=== PATIENT | female | born 1985 | race Caucasian/White ===

== ENCOUNTER 2016-08-08 19:55 | Emergency (ER) | payer MEDICAID ==
[~2016-08-08] VITALS: Ht 162.6 cm; Wt 50.8 kg
[~2016-08-08 19:55] MED LIST: [UNRECOGNIZED DRUG - CODE] PO
[2016-08-08 20:13] VITALS: BP 108/64
--- NOTE | 2016-08-08 20:27 | NUR ---
30Y F BIB SELF C/O RIGHT SIDED FLANK AND BACK PAIN X 10 DAYS. PT STATE SHE WAS SEEN AT HER PCP 5 DAYS AGO AND DID A URINE TEST AND WAS NEGATIVE FOR KIDNEY STONE. PT DENIES ANY MEDICAL HX OR ALLERGIES. PT DENIES ANY N/V/D OR SOB.
--- NOTE | 2016-08-08 20:27 | NUR ---
Patient to bed 08.
[2016-08-08] MEDS ORDERED: KETOROLAC 30 MG/ML VIAL IM ONE (20:35)
--- NOTE | 2016-08-08 21:15 | NUR ---
Patient to CT via wheelchair per tech.
--- NOTE | 2016-08-08 21:22 | NUR ---
Patient back from CT via wheelchair per tech.
[2016-08-08 22:35] VITALS: BP 117/71
--- NOTE | 2016-08-08 22:35 | NUR ---
Patient discharged with v/s stable. Written and verbal after care instructions given and explained. Patient alert, oriented and verbalized understanding of instructions. Ambulatory with steady gait. All questions addressed prior to discharge. ID band removed. Patient advised to follow up with PMD. Rx of NORCO 5/325MG given. Patient educated on indication of medication including possible reaction and side effects. Opportunity to ask questions provided and answered.
== END 2016-08-08 22:35 | disposition home or self-care (01) ==
LOC: MED 19:55
DX: M54.9 Dorsalgia, unspecified (principal)
CPT/HCPCS: 74176; 81002; 81025; 96372; 99284; J1885

== ENCOUNTER 2016-09-27 17:12 | Emergency (ER) | payer MEDICAID ==
[~2016-09-27] VITALS: Ht 162.6 cm; Wt 49.9 kg
[2016-09-27 17:21] VITALS: BP 113/66
--- NOTE | 2016-09-27 19:29 | NUR ---
PATIENT AMBULATED TO BED 6 AT THIS TIME.
[2016-09-27 19:50] VITALS: BP 101/70
--- NOTE | 2016-09-27 19:50 | NUR ---
Patient discharged with v/s stable. Written and verbal after care instructions given and explained. Patient alert, oriented and verbalized understanding of instructions. Ambulatory with steady gait. All questions addressed prior to discharge. ID band removed. Patient advised to follow up with PMD. Rx of colace, motrin, anusol rectal cream, miralax powder given. Patient educated on indication of medication including possible reaction and side effects. Opportunity to ask questions provided and answered.
== END 2016-09-27 19:50 | disposition home or self-care (01) ==
LOC: MED 17:12
CPT/HCPCS: 99283

== ENCOUNTER 2017-01-16 17:47 | Emergency (ER) | payer MEDICAID, OTHER ==
[~2017-01-16] VITALS: Ht 162.6 cm; Wt 49.0 kg
[2017-01-16 18:02] VITALS: BP 108/61
--- NOTE | 2017-01-16 19:49 | NUR ---
PT TAKEN TO BED 7
--- NOTE | 2017-01-16 19:58 | NUR ---
Dr. Cheng evaluating patient at bedside.
--- NOTE | 2017-01-16 20:00 | NUR ---
31/F C/O 01/09 SHARP SEVERE PAIN TO LOWER ABDOMEN X 1 HOUR. PT STATES HX OF OVARIAN CYSTS AND WAS REMOVED FEW MONTHS AGO. DENIES DYSURIA, VAGINAL BLEEDING OR DISCHARGE. PT DENIES ANY OTHER PMH AND RX AT HOME. DENIES N/V/D; SKIN IS PINK/WARM/DRY; AAOX4 WITH EVEN AND STEADY GAIT; LUNGS CLEAR BL; HR EVEN AND REGULAR; PT DENIES ANY FEVER, CP, SOB, OR COUGH AT THIS TIME; VSS; PATIENT POSITIONED FOR COMFORT; HOB ELEVATED; BEDRAILS UP X2; BED DOWN. ER MD MADE AWARE OF PT STATUS.
[2017-01-16] MEDS ORDERED: NACL 0.9% 1,000 ML IV ONE (20:12)
[2017-01-16] MEDS ORDERED: ONDANSETRON 4 MG/2 ML VIAL IVP ONE (20:15)
[2017-01-16] MEDS ORDERED: KETOROLAC 30 MG/ML VIAL IVP ONE (20:15)
[2017-01-16] MEDS ORDERED: DICYCLOMINE 20 MG/2 ML VIAL IM ONE (20:15)
[2017-01-16 20:31] LABS: BASOPHILS # (AUTO) 0.6 K/uL (0.00-0.22); EOSINOPHILS # (AUTO) 0.2 K/uL (0-0.4); HEMATOCRIT 43.3 % (36-48); HEMOGLOBIN 14.1 g/dL (12.0-16.0); LYMPHOCYTES # (AUTO) 2.8 K/uL (2.5-16.5); MEAN CORPUSCULAR HEMOGLOBIN 30 pg (27-31); MEAN CORPUSCULAR HGB CONC 33 g/dL (33-37); MEAN CORPUSCULAR VOLUME 92 fL (80-94); NEUTROPHILS # (AUTO) 5.2 K/uL (1.8-7.7); PLATELET COUNT (AUTO) 236 K/uL (140-450); RED CELL DISTRIBUTION WIDTH 12.9 % (11.6-13.7); WHITE BLOOD COUNT (AUTO) 9.8 K/uL (4.8-10.8)
[2017-01-16 20:34] LABS: APPEARANCE,URINE CLEAR (CLEAR); BILIRUBIN,URINE NEGATIVE (NEGATIVE); BLOOD, URINE NEGATIVE (NEGATIVE); COLOR,URINE YELLOW (YELLOW); LEUKOCYTE ESTERASE ,URINE NEGATIVE (NEGATIVE); NITRITE, URINE NEGATIVE (NEGATIVE); PH,URINE 7.5 (5.0-9.0); UGLUCOSE NEGATIVE (NEGATIVE)
[2017-01-16 20:46] LABS: ANION GAP 9.8 (8-16); CARBON DIOXIDE 27.7 mmol/L (21-32); CREATININE 0.7 mg/dL (0.6-1.3); POTASSIUM 4.5 mmol/L (3.5-5.1)
[2017-01-16 20:52] LABS: ALBUMIN 4.7 g/dL (3.4-5.0); TOTAL BILIRUBIN 0.3 mg/dL (0.0-1.0)
[2017-01-16] MEDS ORDERED: HYDROcodone/APAP 5/325 MG 1 TAB TAB PO ONE (21:45)
[2017-01-16 22:05] VITALS: BP 110/65
--- NOTE | 2017-01-16 22:05 | NUR ---
Patient discharged with v/s stable. Written and verbal after care instructions given and explained. Patient alert, oriented and verbalized understanding of instructions. with steady gait. All questions addressed prior to discharge. ID band removed. Patient advised to follow up with PMD. Rx of NAPROSYN 500 MG ONE TAB W TIMES A DAY PRN PAIN, NORCO 5-325MG ONE TAB EVERY 4 HOURS PRN PAIN given. Patient educated on indication of medication including possible reaction and side effects. Opportunity to ask questions provided and answered. DR DAO CONTACT INFORMATION PROVIDED. IV removed, catheter intact and site benign. Applied folded 4x4 gauze and tape to stop bleeding.
== END 2017-01-16 22:05 | disposition home or self-care (01) ==
LOC: MED 17:47
DX: N83.299 Other ovarian cyst, unspecified side (principal); Z79.899 Other long term (current) drug therapy
CPT/HCPCS: 36415; 74176; 80053; 81003; 81025; 83690; 85025; 96361; 96372; 96374; 96375; 99285; J0500; J1885; J2405; J7030

== ENCOUNTER 2017-03-19 06:40 | Emergency (ER) | payer OTHER ==
[~2017-03-19] VITALS: Ht 162.6 cm; Wt 49.9 kg
[2017-03-19 06:42] VITALS: BP 118/75
--- NOTE | 2017-03-19 06:50 | NUR ---
PT TAKEN TO BED 2
--- NOTE | 2017-03-19 06:54 | NUR ---
31 Y/O F W/C/O CHEST PRESSURE PAIN X THIS AM AT 0400 AM. PT ALSO STATES SHE HAS HAD A COUGH X 5 DAYS WITH NO FEVER. DENIES ANY MED HX. NO OTHER S/S OF DISTRESS NOTED. ER MD MADE AWARE.
[2017-03-19] MEDS ORDERED: KETOROLAC 60 MG/2 ML VIAL IM ONE (07:10)
--- NOTE | 2017-03-19 07:13 | NUR ---
Pt report given to NITA DAHL. Transfer of care at this time.
--- NOTE | 2017-03-19 07:35 | NUR ---
Patient discharged with v/s stable. Written and verbal after care instructions given and explained. Patient alert, oriented and verbalized understanding of instructions. Ambulatory with steady gait. All questions addressed prior to discharge. ID band removed. Patient advised to follow up with PMD. Rx of tramadol and keflex given. Patient educated on indication of medication including possible reaction and side effects. Opportunity to ask questions provided and answered.
[2017-03-19 07:36] VITALS: BP 124/69
== END 2017-03-19 07:35 | disposition home or self-care (01) ==
LOC: MED 06:40
DX: J20.9 Acute bronchitis, unspecified (principal); R07.89 Other chest pain
CPT/HCPCS: 71010; 93005; 96372; 99284; J1885; Q0092

== ENCOUNTER 2017-04-12 16:48 | Inpatient (IN) | payer OTHER ==
[~2017-04-12] VITALS: Ht 162.6 cm; Wt 47.6 kg
[2017-04-12 08:40] VITALS: BP 115/72
[2017-04-12 16:58] VITALS: BP 117/71
[2017-04-12] MEDS ORDERED: NACL 0.9% 1,000 ML IV SCH (16:58)
[2017-04-12] MEDS ORDERED: ONDANSETRON 4 MG/2 ML VIAL IVP ONE (17:00)
[2017-04-12] MEDS ORDERED: KETOROLAC 30 MG/ML VIAL IVP ONE (17:00)
[2017-04-12] MEDS ORDERED: MORPHINE SULFATE 4 MG/ML SYR IVP ONE ×2 (17:00→19:20)
--- NOTE | 2017-04-12 17:01 | NUR ---
pt to lobby awaiting room, er aware, pt is ao, vss, nad
[2017-04-12 17:39] LABS: BILIRUBIN,URINE NEGATIVE (NEGATIVE); BLOOD, URINE NEGATIVE (NEGATIVE); COLOR,URINE YELLOW (YELLOW); LEUKOCYTE ESTERASE ,URINE NEGATIVE (NEGATIVE); NITRITE, URINE NEGATIVE (NEGATIVE); UGLUCOSE NEGATIVE (NEGATIVE)
[2017-04-12 17:40] LABS: APPEARANCE,URINE CLEAR (CLEAR)
--- NOTE | 2017-04-12 18:01 | NUR ---
31f bib self with c/o bl lower abd pain/vaginal pain/ rectal pain since 1400 today; Pt denies any vaginal bleeding or discharge. Pt denies any n/v/d hx--ovary cysts .DENIES DIARRHEA; SKIN IS PINK/WARM/DRY; AAOX4 WITH EVEN AND STEADY GAIT; LUNGS CLEAR BL; HR EVEN AND REGULAR; PT DENIES ANY FEVER, CP, SOB, OR COUGH AT THIS TIME; PATIENT STATES PAIN OF 10/10 AT THIS TIME; VSS; PATIENT POSITIONED FOR COMFORT; HOB ELEVATED; BEDRAILS UP X2; BED DOWN. ER MD MADE AWARE OF PT STATUS.
[2017-04-12 18:31] LABS: BASOPHILS # (AUTO) 0.2 K/uL (0.00-0.22); BASOPHILS % (AUTO) 1.2 % (0.0-2.0); EOSINOPHILS # (AUTO) 0.1 K/uL (0-0.4); EOSINOPHILS % (AUTO) 0.4 % (0.0-4.0); HEMATOCRIT 37.7 % (36-48); HEMOGLOBIN 12.7 g/dL (12.0-16.0); LYMPHOCYTES # (AUTO) 1.5 K/uL (2.5-16.5); LYMPHOCYTES % (AUTO) 8.9 % (20.5-51.1); MEAN CORPUSCULAR HEMOGLOBIN 30 pg (27-31); MEAN CORPUSCULAR HGB CONC 34 g/dL (33-37); MEAN CORPUSCULAR VOLUME 90 fL (80-94); MONOCYTES % (AUTO) 6.1 % (1.7-9.3); NEUTROPHILS # (AUTO) 13.6 K/uL (1.8-7.7); NEUTROPHILS % (AUTO) 83.4 % (42.2-75.2); PLATELET COUNT (AUTO) 261 K/uL (140-450); RED CELL DISTRIBUTION WIDTH 13.1 % (11.6-13.7); WHITE BLOOD COUNT (AUTO) 16.4 K/uL (4.8-10.8)
[2017-04-12 18:57] LABS: ALBUMIN 4.4 g/dL (3.4-5.0); ANION GAP 14.5 (8-16); CREATININE 0.7 mg/dL (0.6-1.3); POTASSIUM 4.5 mmol/L (3.5-5.1); TOTAL BILIRUBIN 0.4 mg/dL (0.0-1.0)
[2017-04-12] MEDS ORDERED: DEXT 5% /NACL 0.9% 1,000 ML IV SCH (19:20)
[2017-04-12] MEDS ORDERED: LORazepam 2 MG/ML VIAL IVP PRN (19:20)
[2017-04-12] MEDS ORDERED: HYDROmorphone 1 MG/ML AMP IVP PRN (19:20)
[2017-04-12] MEDS ORDERED: MORPHINE SULFATE 2 MG/ML SYR ONE (19:30)
[2017-04-12] MEDS ORDERED: HYDROmorphone PFS 2 MG/ML SYR IVP PRN (20:06)
--- NOTE | 2017-04-12 20:22 | NUR ---
Pt transferred to Med/Surg via [facility].
[2017-04-12 20:40] VITALS: BP 115/72
--- NOTE | 2017-04-12 20:40 | NUR ---
RECEIVED PT FROM ER. PT IN STABLE CONDITION. AAOX4, ON ROOM AIR. IV TO THE L AC 20G, NOT FLUSHING, WILL HAVE TO START NEW IV. SKIN IS INTACT. PT CAME IN WITH C/O ABD PAIN, DX OVARIAN CYST. RESPIRATIONS ARE EVEN AND UNLABORED. PT BOWEL SOUNDS PRESENT. SKIN IS WARM AND DRY TO TOUCH. INITIAL ASSESSMENT COMPLETED. PLAN OF CARE DISCUSSED WITH PT, ORIENTED TO ROOM, BOARD UPDATED. WILL CONTINUE TO MONITOR
--- NOTE | 2017-04-12 20:50 | NUR ---
NEW IV STARTED BY RODRIGO CHARGE NURSE IN THE R FA 22G, PATENT AND INTACT, FLUSHING WELL, TWO ATTEMPTS MADE. OLD IV DISCONTINUED AND REMOVED, TIP IN TACT, PT TOLERATED WELL.
[2017-04-12] MEDS ORDERED: MORPHINE SULFATE 5 MG/ML VIAL IVP PRN (21:25)
[2017-04-12] MEDS: DEXT 5% /NACL 0.9% 1,000 ML IV SCH (21:25)
[2017-04-12] MEDS ORDERED: MORPHINE SULFATE 10 MG/ML SYR IVP PRN (21:55)
[2017-04-12] MEDS: HYDROmorphone PFS 2 MG/ML SYR IVP PRN (22:31)
[2017-04-13] VITALS (8 sets, daily range): BP systolic 93–110; BP diastolic 58–74
[2017-04-13] MEDS: ONDANSETRON 4 MG/2 ML VIAL IVP PRN ×5 (00:16→21:44)
[2017-04-13] MEDS: HYDROmorphone PFS 2 MG/ML SYR IVP PRN ×6 (04:57→14:45)
--- NOTE | 2017-04-13 06:36 | NUR ---
PT C/O CONSTANT BEEPING WHEN ARM IS BENDING AND REQUESTS NEW IV. IV PLACED IN R UPPER ARM 20G, PATENT AND INTACT, INFUSING WELL
[2017-04-13] MEDS: DEXT 5% /NACL 0.9% 1,000 ML IV SCH ×2 (07:25→17:25)
[2017-04-13 07:43] LABS: BASOPHILS # (AUTO) 0.2 K/uL (0.00-0.22); BASOPHILS % (AUTO) 1.8 % (0.0-2.0); EOSINOPHILS # (AUTO) 0.1 K/uL (0-0.4); EOSINOPHILS % (AUTO) 0.6 % (0.0-4.0); HEMATOCRIT 26.2 % (36-48); HEMOGLOBIN 8.9 g/dL (12.0-16.0); LYMPHOCYTES # (AUTO) 1.7 K/uL (2.5-16.5); LYMPHOCYTES % (AUTO) 13.3 % (20.5-51.1); MEAN CORPUSCULAR HEMOGLOBIN 30 pg (27-31); MEAN CORPUSCULAR HGB CONC 34 g/dL (33-37); MEAN CORPUSCULAR VOLUME 90 fL (80-94); MONOCYTES % (AUTO) 7.3 % (1.7-9.3); PLATELET COUNT (AUTO) 207 K/uL (140-450); RED BLOOD CELL COUNT(AUTO) 2.92 MIL/uL (4.20-5.40); RED CELL DISTRIBUTION WIDTH 13.3 % (11.6-13.7)
--- NOTE | 2017-04-13 07:50 | NUR ---
ENDORSED PT TO NELIA MOYA FOR CONTINUITY OF CARE, PT IN STABLE CONDITION. IV IS PATENT AND INTACT. NO S/S OF DISTRESS NOTED.
--- NOTE | 2017-04-13 07:55 | NUR ---
RECEIVED PATIENT REPORT AT BEDSIDE FROM NIGHT NURSE. PATIENT IS AAOX4 AND SHOWS NO S/S OF ACUTE DISTRESS ON ROOM AIR. PATIENT SKIN IS INTACT. IV NOTED ON THE RIGHT UPPER ARM WITH IVF'S INFUSING WELL WITH NO SIGNS OF INFILTRATION. PATIENT STATES PAIN OF 10/10 AND C/O NAUSEA, WILL ADMINISTER MEDICATIONS ONCE AVAILABLE. BED IS IN LOW POSITION WITH CALL LIGHT WITHIN REACH.
[2017-04-13 07:59] LABS: ALBUMIN 3.4 g/dL (3.4-5.0); ANION GAP 12.5 (8-16); CARBON DIOXIDE 24.6 mmol/L (21-32); CREATININE 0.5 mg/dL (0.6-1.3); POTASSIUM 4.1 mmol/L (3.5-5.1); TOTAL BILIRUBIN 0.4 mg/dL (0.0-1.0)
--- NOTE | 2017-04-13 08:00 | NUR ---
PATIENT REFUSED BREAKFAST D/T NAUSEA, ELHAM MCNEILL AT 1042 GAVE PATIENT EMESIS BAG AND OFFERED ICE CHIPS.
--- NOTE | 2017-04-13 08:52 | NUR ---
PT HAS BEEN SCREENED AND CATEGORIZED HIGH NUTIRITON RISK. PT WILL BE SEEN WITHIN 1-2 DAYS OF ADMISSION. 04/12/17-04/13/[address]
--- NOTE | 2017-04-13 11:04 | NUR ---
PATIENT C/O OF NAUSEA AND 10/10 ABD PAIN, WILL ADMINISTER ZOFRAN 4 MG IVP AND DILAUDID 2 MG IVP AND REASSESS FOR PAIN IN 30 MIN.
--- NOTE | 2017-04-13 11:24 | NUR ---
PATIENT GIVEN EDUCATION HANDOUT ON PROCEDURE TO BE DONE TODAY BY DR DAO.
--- NOTE | 2017-04-13 12:21 | NUR ---
PATIENT BEING SEEN BY DR DAO. PATIENT WAS EXPLAINED PROCEDURE FOR TODAY AND VERBALIZED UNDERSTANDING OF RISKS AND BENEFITS OF SURGERY. PATIENT AGREED AND SIGNED CONSENT.
[2017-04-13] MEDS ORDERED: BUPIVACAINE-MPF 0.5% 30 ML VIAL INJ ONE (12:44)
--- NOTE | 2017-04-13 13:05 | NUR ---
PATIENT LEFT TO PROCEDURE IN GURNEY TO OR IN STABLE CONDITION.
[2017-04-13] MEDS ORDERED: DEXAMETHASONE 4 MG/ML VIAL IVP ONE (13:10)
[2017-04-13] MEDS ORDERED: SEVOFLURANE 250 ML BTL INH ONE (13:10)
[2017-04-13] MEDS ORDERED: SUCCINYLCHOLINE CHLORIDE 200 MG/10 ML VIAL IV ONE (13:10)
[2017-04-13] MEDS ORDERED: ONDANSETRON 4 MG/2 ML VIAL IVP ONE (13:10)
[2017-04-13] MEDS ORDERED: PROPOFOL 200 MG/20 ML VIAL IV ONE (13:10)
[2017-04-13] MEDS ORDERED: MIDAZOLAM 2 MG/2 ML VIAL ONE (13:12)
[2017-04-13] MEDS: LACTATED RINGERS 1,000 ML IV SCH ×2 (13:12→21:32)
[2017-04-13] MEDS ORDERED: fentaNYL 0.05 MG/ML VIAL ONE (13:13)
[2017-04-13] MEDS ORDERED: MEPERIDINE 50 MG/ML SYR ONE (13:13)
[2017-04-13] MEDS ORDERED: ceFAZolin 1,000 MG VIAL ONE (13:15)
[2017-04-13] MEDS ORDERED: diphenhydrAMINE 50 MG/ML VIAL IVP PRN (13:15)
[2017-04-13] MEDS ORDERED: MEPERIDINE 25 MG/ML SYR IVP PRN (13:15)
[2017-04-13] MEDS ORDERED: ONDANSETRON 4 MG/2 ML VIAL IVP PRN (13:15)
[2017-04-13] MEDS ORDERED: IBUPROFEN 800 MG TAB PO PRN (13:25)
[2017-04-13] MEDS ORDERED: ACETAMINOPHEN/CODEINE 300/30MG 1 TAB PO PRN (13:25)
[2017-04-13] MEDS ORDERED: HYDROmorphone PFS 2 MG/ML SYR ONE (14:20)
--- NOTE | 2017-04-13 14:23 | NUR ---
CM NOTE INITIAL REVIEW FAXED TO [facility] [phone] BELINDA # [phone]
--- NOTE | 2017-04-13 14:50 | NUR ---
PATIENT ARRIVED ON UNIT IN STABLE CONDITION FROM PROCEDURE. PATIENT V/S CHARTED, PATIENT STATES 8/10 ABD PAIN AND HAS ALREADY BEEN MEDICATED FOR PAIN. PATIENT'S FAMILY AT BEDSIDE, ALL NEEDS MET AT THIS TIME.
--- NOTE | 2017-04-13 14:55 | NUR ---
NOTED ABD DRX CLEAN DRY AND INTACT.
--- NOTE | 2017-04-13 15:00 | NUR ---
PATIENT WAS ASSISTED TO THE BATHROOM, PATIENT HAS STEADY AMB WITH ASSISTANCE. PATIENT VOIDED URINE, SHE IS NOW IN BED AND SHOWS NO S/S OF ACUTE DISTRESS AT THIS TIME.
--- NOTE | 2017-04-13 15:35 | NUR ---
PATIENT WAS GIVEN EARLY DINNER CLEAR LIQUIDS, PATIENT TOLERATING DIET WELL, NO N/V. FAMILY AT BEDSIDE. ALL NEEDS MET AT THIS TIME.
--- NOTE | 2017-04-13 15:47 | NUR ---
04/13/2017 RD INITIAL ASSESSMENT COMPLETED PLEASE REFER TO NUTRITION ASSESSMENT UNDER CARE ACTIVITY FOR ESTIMATED NUTRITIONAL NEEDS. PT TO CONSUME >75% ESTIMATED ENERGY AND PROTEIN NEEDS WITHIN 3-5 DAYS. CONTINUE CLEAR LIQUID DIET, ADVANCE TOLERATED TO REGULAR FOODS. RD TO FOLLOW-UP IN 3-5 DAYS PATIENT IS MODERATE RISK. FADUMO PATEL RD
--- NOTE | 2017-04-13 16:00 | NUR ---
PATIENT DENIES PAIN, ALL NEEDS MET AT THIS TIME.
[2017-04-13] MEDS: MORPHINE SULFATE 4 MG/ML SYR IM/IVP PRN ×2 (17:10→21:45)
--- NOTE | 2017-04-13 17:20 | NUR ---
PATIENT C/O ABD PAIN 10/09 ADMINISTERED MORPHINE 4 MG IVP AND GAVE ZOFRAN 4 MG IVP FOR NAUSEA. PATIENT'S NEEDS MET AT THIS TIME. WILL REASSESS PAIN IN 30 MIN. BED IN LOW POSITION WITH CALL LIGHT WITHIN REACH.
--- NOTE | 2017-04-13 18:17 | NUR ---
PATIENT TOLERATED REGULAR DIET AND DENIES N/V. BED IN LOW POSITION WITH CALL LIGHT WITHIN REACH.
--- NOTE | 2017-04-13 19:05 | NUR ---
GAVE PATIENT REPORT AT BEDSIDE TO NIGHT NURSE. PATIENT ENDORSED IN STABLE CONDITION.
--- NOTE | 2017-04-13 19:15 | NUR ---
RECEIVED REPORT FROM AM NURSE. PT RESTING IN BED, AOX4, AMBULATORY, ABLE TO VERBALIZE NEEDS. PT DENIES CHEST PAIN, SOB, OR S/S OF ACUTE DISTRESS. PT REPORTS ABD ONLY WHEN MOVING. PT HAS LOWER ABD INCISION, DRESSING CLEAN DRY AND INTACT. PT IS S/P SURGERY OF TWISTED OVARIAN CYST WITH HEMORRHAGIC CYST TODAY (04/13/17). PT DENIES HAVING GAS, REPORTS LBM 04/11/17, ABLE TO TOLERATED SMALL AMOUNTS OF REGULAR DIET, DENIES N/V AT THIS TIME. DISCONTINUED PT'S R FA IV ACCESS, CANNULA INTACT, PT TOLERATED WELL. PT'S REMAINING R UPPER ARM IV ACCESS ASYMPTOMATIC, PATENT ANT INTACT. IVF INFUSING WELL. ALL NEEDS MET. SAFETY MEASURES ENSURED. CALL LIGHT WITHIN REACH.
--- NOTE | 2017-04-13 21:24 | NUR ---
ASSISTED TO EAT, ABLE TO TOLERATE REGULAR DIET SLOWLY AT THIS TIME. PT DENIES PAIN AT THIS TIME, REPORTS PAIN ONLY WHEN MOVING. ASSISTED PT TO WASH HAIR. ALL NEEDS MET. SAFETY MEASURES ENSURED. CALL LIGHT WITHIN REACH.
--- NOTE | 2017-04-13 21:45 | NUR ---
PT C/O NAUSEA. ADMINISTERED ZOFRAN IVP PRN ORDERED. PT C/O LOWER ABD PAIN. SEE PAIN ASSESSMENT. ADMINISTERED MORPHINE 4MG IVP PRN ORDERED. PT VERBALIZED UNDERSTANDING, TOLERATED MEDS WELL. ALL NEEDS MET. SAFETY MEASURES ENSURED. CALL LIGHT WITHIN REACH.
[2017-04-14] VITALS (20 sets, daily range): BP systolic 83–105; BP diastolic 42–66
--- NOTE | 2017-04-14 00:01 | NUR ---
ASSISTED PT TO RESTROOM, ABLE TO AMBULATE WITH 1 PERSON MINIMAL ASSIST, REPORTS PAIN. PROVIDED SNACKS. ALL NEEDS MET. SAFETY MEASURES ENSURED. CALL LIGHT WITHIN REACH.
[2017-04-14] MEDS: DEXT 5% /NACL 0.9% 1,000 ML IV SCH ×3 (03:26→23:25)
--- NOTE | 2017-04-14 04:28 | NUR ---
PT SLEEPING COMFORTABLY, NO S/S OF ACUTE DISTRESS. ALL NEEDS MET. IVF INFUSING WELL. SAFETY MEASURES ENSURED. CALL LIGHT WITHIN REACH.
[2017-04-14] MEDS: MORPHINE SULFATE 4 MG/ML SYR IM/IVP PRN ×2 (04:50→08:15)
--- NOTE | 2017-04-14 04:51 | NUR ---
PT REPORTS AMBULATING TO THE RESTROOM INDEPENDENTLY, NO BM. PT C/O LOWER ABD PAIN. SEE PAIN ASSESSMENT. BP 105/60, ADMINISTERED MORPHINE 4MG IVP PRN ORDERED WITH EDUCATION. PT VERBALIZED UNDERSTANDING. ALL NEEDS MET. IVF INFUSING WELL. SAFETY MEASURES ENSURED. CALL LIGHT WITHIN REACH.
[2017-04-14] MEDS: LACTATED RINGERS 1,000 ML IV SCH ×3 (04:55→22:32)
--- NOTE | 2017-04-14 07:05 | NUR ---
ENDORSED PLAN OF CARE TO AM NURSE. CONDITION STABLE.
--- NOTE | 2017-04-14 07:07 | NUR ---
RECEIVED PATIENT REPORT AT BEDSIDE FROM NIGHT NURSE. PATIENT IS AAOX4 AND SHOWS NO S/S OF ACUTE DISTRESS ON ROOM AIR. PATIENT IS PALE, NOTED ABD DRX CLEAN DRY AND INTACT WITH ACTIVE BOWEL SOUNDS. IV NOTED ON THE RIGHT UPPER ARM WITH IVF'S INFUSING WELL WITH NO SIGNS OF INFILTRATION AND IV ON THE RT FA SL. PATIENT STATES ABD PAIN OF 8/10 AND C/O NAUSEA, WILL ADMINISTER MEDICATIONS. BED IS IN LOW POSITION WITH CALL LIGHT WITHIN REACH.
--- NOTE | 2017-04-14 07:35 | NUR ---
PATIENT SEEN BY DR SANTO, ORDERED TO GIVE NORCO 5/325 MG PO Q6H ROUTINE. WILL PLACE ORDERS.
[2017-04-14 07:40] LABS: BASOPHILS # (AUTO) 0.2 K/uL (0.00-0.22); EOSINOPHILS # (AUTO) 0.1 K/uL (0-0.4); EOSINOPHILS % (AUTO) 0.9 % (0.0-4.0); LYMPHOCYTES # (AUTO) 1.8 K/uL (2.5-16.5); LYMPHOCYTES % (AUTO) 18.4 % (20.5-51.1); MEAN CORPUSCULAR HEMOGLOBIN 30 pg (27-31); MEAN CORPUSCULAR HGB CONC 33 g/dL (33-37); MEAN CORPUSCULAR VOLUME 91 fL (80-94); MONOCYTES % (AUTO) 9.7 % (1.7-9.3); NEUTROPHILS # (AUTO) 6.8 K/uL (1.8-7.7); PLATELET COUNT (AUTO) 139 K/uL (140-450); RED BLOOD CELL COUNT(AUTO) 1.82 MIL/uL (4.20-5.40); RED CELL DISTRIBUTION WIDTH 13.4 % (11.6-13.7); WHITE BLOOD COUNT (AUTO) 9.9 K/uL (4.8-10.8)
[2017-04-14 07:58] LABS: HEMATOCRIT 16.5 % (36-48); HEMOGLOBIN 5.4 g/dL (12.0-16.0)
[2017-04-14] MEDS: ONDANSETRON 4 MG/2 ML VIAL IVP PRN (08:15)
[2017-04-14 08:16] LABS: ALBUMIN 2.6 g/dL (3.4-5.0); CREATININE 0.5 mg/dL (0.6-1.3); POTASSIUM 3.5 mmol/L (3.5-5.1); TOTAL BILIRUBIN 0.2 mg/dL (0.0-1.0)
--- NOTE | 2017-04-14 08:21 | NUR ---
ADMINISTERED MEDICATIONS FOR NAUSEA AND ABD PAIN OF 8/10 WILL REASSESS IN 30 MIN. PATIENT SHOWS NO S/S OF ACUTE DISTRESS ON ROOM AIR. BED IN LOW POSITION WITH CALL LIGHT WITHIN REACH.
[2017-04-14 08:27] LABS: ANION GAP 12.6 (8-16); CARBON DIOXIDE 23.9 mmol/L (21-32)
--- NOTE | 2017-04-14 08:55 | NUR ---
PATIENT STATES, ABD PAIN IS 0/10 AT THIS TIME HOWEVER WHEN SHE GETS UP TO USE THE RESTROOM HER PAIN GOES UP. PATIENT IS ENCOURAGED TO USE THE CALL LIGHT FOR AMB ASSISTANCE.
--- NOTE | 2017-04-14 09:14 | NUR ---
SPOKE WITH LAB REGARDING ORDER FOR STAT PRBC, AND THE WOMAN STATED, "WILL BE READY IN 4 HRS."
--- NOTE | 2017-04-14 10:00 | NUR ---
PATIENT WAS GIVEN ABD BINDER AND ENCOURAGED TO DO DEEP BREATHING EXERCISES. PATIENT STATED SHE WILL ATTEMPT TO HOWEVER SHE FEELS PAIN WHEN SHE DOES. PATIENT EDUCATED ON THE RISKS OF NOT PERFORMING DEEP BREATHING EXERCISES AND SHE VERBALIZED UNDERSTANDING. PATIENT'S NEEDS MET AT THIS TIME. BED IN LOW POSITION WITH CALL LIGHT WITHIN REACH.
--- NOTE | 2017-04-14 12:15 | NUR ---
PATIENT BP WAS TAKEN AND CHARTED PRIOR TO PICKING UP ONE UNIT OF BLOOD FROM LAB, WILL CHART, PATIENT STATES ABD PAIN 8/10 FROM SURGICAL SITE, PATIENT HAS NORCO 5/325 MG PO Q6H SCHEDULED WILL ADMINISTER. PATIENT SHOWS NO S/S OF ACUTE DISTRESS ON ROOM AIR.
--- NOTE | 2017-04-14 12:30 | NUR ---
BLOOD TRANSFUSION BEGAN, V/S CHARTED. PATIENT IS IN STABLE CONDITION, SHOWS NO S/S OF ACUTE DISTRESS.
--- NOTE | 2017-04-14 12:45 | NUR ---
PATIENT DENIES SOB, CHEST PAIN, BACK PAIN, OR ITCHINESS. PATIENT IS AFEBRILE. V/S CHARTED, PATIENT TOLERATING BLOOD TRANSFUSION AT THIS TIME.
[2017-04-14] MEDS: HYDROcodone/APAP 5/325 MG 1 TAB TAB PO SCH ×2 (12:52→18:21)
--- NOTE | 2017-04-14 13:00 | NUR ---
PATIENT SHOWS NO S/S OF ACUTE DISTRESS ON ROOM AIR. PATIENT DID C/O SHOULDER PAIN BUT HAS NOW GONE AWAY, LASTED FOR ABOUT 5 MINUTES. PATIENT DENIES, SOB, PAIN, ITCHINESS, BACK PAIN. PATIENT IS AFEBRILE. PATIENT TOLERATING BLOOD TRANSFUSION WELL.
--- NOTE | 2017-04-14 13:15 | NUR ---
GAVE PATIENT REPORT TO KOMAL MOYA. PATIENT ENDORSED IN STABLE CONDITION.
--- NOTE | 2017-04-14 13:16 | NUR ---
RECEIVED REPORT FROM NITA PICKENS FOR CONTINUITY OF CARE. PATIENT IN STABLE CONDITION. WILL CONTINUE TO MONITOR.
--- NOTE | 2017-04-14 15:30 | NUR ---
PATIENT SITTING IN BED TALKING ON THE PHONE WITH FAMILY MEMBER. NO DISTRESS NOTED. DENIES ANY PAIN. 1 UNIT OF BLOOD TRANSFUSION COMPLETED AT THIS TIME. NO REACTIONS NOTED. PATIENT TOLERATED WELL. WILL NEWCOMER HOSTESS 2ND UNIT OF BLOOD AND ADMINISTER. SAFETY MEASURES IN PLACE, CALL LIGHT WITHIN REACH. WILL CONTINUE TO MONITOR.
--- NOTE | 2017-04-14 16:10 | NUR ---
SECOND UNIT OF BLOOD STARTED. SAFETY MEASURES IN PLACE, CALL LIGHT WITHIN REACH. WILL CONTINUE TO MONITOR.
--- NOTE | 2017-04-14 18:24 | NUR ---
PATIENT AMBULATED TO BATHROOM WITH ASSISTANCE. COMPLAINTS OF PAIN ON ABDOMEN WHEN BACK ON BED. ADMINISTERED SCHEDULED NORCO MEDICATION. BLOOD INFUSION STILL INFUSING. SAFETY MEASURES IN PLACE, CALL LIGHT WITHIN REACH. WILL CONTINUE TO MONITOR.
--- NOTE | 2017-04-14 19:15 | NUR ---
GAVE REPORT TO AIRFRAME TECHNICAL OFFICER NURSE FOR CONTINUITY OF CARE. PATIENT IN STABLE CONDITION.
--- NOTE | 2017-04-14 19:16 | NUR ---
PATIENT RESTING IN BED WATCHING TV EATING HER DINNER WELL AND TOLERATES WELL.PATIENT HAS NO COMPLAINS OF PAIN AT THIS TIME. IVF INFUSING WELL IV SITE PATENT. PATIENT IS ASKING IF HER CHILDREN CAN COME AND VISIT HER FOR A SHORT WHILE. PATIENT NEEDS MET AT THIS TIME. WILL CONTINUE TO MONITOR.
--- NOTE | 2017-04-14 20:00 | NUR ---
Patient's Plan of Care was discussed and reviewed with RESIDENT CARE SPEC: EVARISTO MILTON
--- NOTE | 2017-04-14 20:15 | NUR ---
PATIENT SIGNIFICANT OTHER AND HER DAUGHTERS CAME TO VISIT HER AND ARE LEAVING SHORTLY.
[2017-04-15] MEDS: HYDROcodone/APAP 5/325 MG 1 TAB TAB PO SCH ×3 (00:06→12:00)
--- NOTE | 2017-04-15 00:06 | NUR ---
PATIENT IS CURRENTLY RESTING IN BED WATCHING TV PATIENT COMPLAINS OF MODERATE PAIN TO LOWER ABDOMEN PATIENT WAS MEDICATED WITH NORCO ORDERED. PATIENT WANTED HER SANDWICH WARMED UP AND I WARMED UP HER SANDWICH. NEEDS MET WILL CONTINUE TO MONITOR.
--- NOTE | 2017-04-15 00:15 | NUR ---
PATIENT IS COMPLAINING OF PAIN TO IV SITE,IV SITE HAD GOOD BLOOD RETURN AND NO PUFFINESS NOTED BUT PATIENT COMPLAINS OF PAIN AND PATIENT STATES,"ITS HURTING A LOT." SO A NEW IV LINE WAS RESTARTED TO RT HAND G#22 AT FIRST ATTEMPT WITH GOOD BLOOD RETURN AND SECURED WELL. PATIENT TOLERATED PROCEDURE WELL.IVF INFUSING WELL.OLD IV SITE TO RIGHT UPPER ARM WAS TAKEN OFF AND SITE WAS CLEANED WELL WITH ALCOHOL.
--- NOTE | 2017-04-15 02:06 | NUR ---
PATIENT RESTING IN BED NO DISTRESS WILL CONTINUE TO MONITOR.CALL LIGHT WITHIN REACH.
--- NOTE | 2017-04-15 04:27 | NUR ---
PATIENT RESTING IN BED IN NO DISTRESS WILL CONTINUE TO MONITOR.IVF INFUSING WELL IV SITE PATENT.CALL LIGHT WITHIN REACH.
[2017-04-15] MEDS: DEXT 5% /NACL 0.9% 1,000 ML IV SCH (04:35)
--- NOTE | 2017-04-15 06:00 | NUR ---
PATIENT CURRENTLY STABLE RESTING IN BED AT THIS TIME REFUSED HER SCHEDULED NORCO PAIN MEDICATION.IVF INFUSING WELL IV SITE PATENT.NEEDS MET WILL CONTINUE TO MONITOR.
[2017-04-15] MEDS: LACTATED RINGERS 1,000 ML IV SCH (06:52)
--- NOTE | 2017-04-15 07:15 | NUR ---
ASSUMED CONTINUITY OF CARE. NO SIGNS AND SYMPTOMS OF ACUTE DISTRESS NOTED. INITIAL ASSESSMENT DONE. KEEP COMFORTABLE ON BED. CALL LIGHT WITHIN REACH.
--- NOTE | 2017-04-15 07:15 | NUR ---
PATIENT STABLE REPORT ENDORSED TO TALISHA MOSER.
--- NOTE | 2017-04-15 07:27 | NUR ---
DR. SANTO CAME, REVIEWED PT. CHART AND SAID PT. WILL BE D/C HOME AFTER LUNCH TODAY.
[2017-04-15 07:32] LABS: BASOPHILS # (AUTO) 0.3 K/uL (0.00-0.22); BASOPHILS % (AUTO) 4.2 % (0.0-2.0); EOSINOPHILS # (AUTO) 0.1 K/uL (0-0.4); EOSINOPHILS % (AUTO) 0.9 % (0.0-4.0); HEMATOCRIT 21.2 % (36-48); HEMOGLOBIN 7.3 g/dL (12.0-16.0); LYMPHOCYTES # (AUTO) 2.8 K/uL (2.5-16.5); LYMPHOCYTES % (AUTO) 44.5 % (20.5-51.1); MEAN CORPUSCULAR HEMOGLOBIN 31 pg (27-31); MEAN CORPUSCULAR HGB CONC 34 g/dL (33-37); MEAN CORPUSCULAR VOLUME 90 fL (80-94); MONOCYTES # (AUTO) 0.7 K/uL (0.8-1.0); MONOCYTES % (AUTO) 10.8 % (1.7-9.3); NEUTROPHILS # (AUTO) 2.5 K/uL (1.8-7.7); NEUTROPHILS % (AUTO) 39.6 % (42.2-75.2); PLATELET COUNT (AUTO) 131 K/uL (140-450); RED BLOOD CELL COUNT(AUTO) 2.37 MIL/uL (4.20-5.40); RED CELL DISTRIBUTION WIDTH 13.6 % (11.6-13.7); WHITE BLOOD COUNT (AUTO) 6.4 K/uL (4.8-10.8)
[2017-04-15 07:59] LABS: ALBUMIN 2.5 g/dL (3.4-5.0); ANION GAP 11.7 (8-16); CARBON DIOXIDE 26.8 mmol/L (21-32); CREATININE 0.5 mg/dL (0.6-1.3); POTASSIUM 3.5 mmol/L (3.5-5.1); TOTAL BILIRUBIN 0.7 mg/dL (0.0-1.0)
[2017-04-15 08:00] VITALS: BP 98/56
[2017-04-15] MEDS ORDERED: ACET-2869 PO ×2 (09:18→09:19)
[2017-04-15] MEDS ORDERED: DOCU-299 PO (09:20)
[2017-04-15] MEDS ORDERED: ONDA4TAB PO (09:21)
--- NOTE | 2017-04-15 11:40 | NUR ---
EXPLAINED ABOUT MD D/C ORDER, D/C INSTRUCTIONS AND TEACHING, MD D/C PRESCRIPTION LIST EDUCATION, INCISION CARE, PAIN MANAGEMENT TEACHING, MD FOLLOW-UP, DIET, ACTIVITY. VERBALIZED UNDERSTANDING. REFUSED PNA AND FLU VACCINE.
[2017-04-15 12:00] VITALS: BP 104/63
--- NOTE | 2017-04-15 12:50 | NUR ---
D/C HOME VIA WHEELCHAIR ACCOMPANIED BY PT. AND PT. CHILDREN. AWAKE, ALERT, AND ORIENTED X4. SPEECH CLEAR. NO C/O PAIN. NO SOB, NOTED. IN STABLE CONDITION. INFORMED CHARGE NURSE SUNDAR WALL.
== END 2017-04-15 12:50 | disposition home or self-care (01) | DRG 513 ==
LOC: MED 16:48 → MTU 19:16
PROVIDERS: ADMIT Hospitalist; ATTEND Hospitalist
PROC: 0UB00ZZ Excision of Right Ovary, Open Approach (ICD-10-PCS; principal; 2017-04-13 13:00)
PROC: 30233N1 Transfusion of Nonautologous Red Blood Cells into Peripheral Vein, Percutaneous Approach (ICD-10-PCS; 2017-04-14)
DX: N83.511 Torsion of right ovary and ovarian pedicle (principal); D64.9 Anemia, unspecified; F17.210 Nicotine dependence, cigarettes, uncomplicated; N83.201 Unspecified ovarian cyst, right side; Z71.6 Tobacco abuse counseling
CPT/HCPCS: 36415; 76856; 80053; 81003; 82150; 83690; 83735; 84703; 85025; 86886; 86900; 86901; 86920; 87081; 96361; 96374; 96375; 96376; 99285; J0330; J0690; J1100; J1170; J1885; J2175; J2250; J2270; J2405; J2704; J3010; J3490; J7030; J7042; P9016

== ENCOUNTER 2017-09-11 21:31 | Emergency (ER) | payer OTHER ==
[~2017-09-11] VITALS: Ht 162.6 cm; Wt 52.2 kg
[~2017-09-11 21:31] MED LIST changes: +ACET-2869 PO; +DOCU-299 PO; +ONDA4TAB PO; -[UNRECOGNIZED DRUG - CODE] PO
[2017-09-11 21:48] VITALS: BP 105/67
[2017-09-11] MEDS ORDERED: KETOROLAC 30 MG/ML VIAL IM ONE (23:50)
[2017-09-12 00:11] LABS: ANION GAP 9.9 (8-16); CARBON DIOXIDE 28.3 mmol/L (21-32); CREATININE 0.6 mg/dL (0.6-1.3); POTASSIUM 4.2 mmol/L (3.5-5.1)
[2017-09-12 00:51] VITALS: BP 116/72
== END 2017-09-12 00:51 | disposition home or self-care (01) ==
LOC: MED 21:31
DX: R60.0 Localized edema (principal); M25.571 Pain in right ankle and joints of right foot
CPT/HCPCS: 29515; 36415; 73610; 80048; 96372; 99285; J1885; Q0092

== ENCOUNTER 2017-10-25 18:48 | Emergency (ER) | payer OTHER ==
[~2017-10-25] VITALS: Ht 162.6 cm; Wt 50.4 kg
[2017-10-25 18:57] VITALS: BP 105/70
--- NOTE | 2017-10-25 19:03 | NUR ---
PT AMBULATES TO BED 4
--- NOTE | 2017-10-25 19:11 | NUR ---
PT CAME IN TO THE ER WITH C/O PAIN TO THE RIGHT KNEEE X 3 MONTHS. NOT SENSITIVE TO TOUGH. NO REDNESS OR SWELLING TO THE SITE. PT STATES THAT SHE HAS NO PAIN WHEN SITTIG BUT UPON STANDIG, WALKING OR BENDING,THE PAIN IS SEVERE SHARP PAIN LEVEL 10/10. PT STATES SHE HAS HAD A PRE-EXISTING INJURY YEARS AGO. DENIES SURGERY TO KNEE DENIES N/V/D; SKIN IS PINK/WARM/DRY; AAOX4 WITH EVEN AND STEADY GAIT; PATIENT ; VSS; PATIENT POSITIONED FOR COMFORT; HOB ELEVATED; BEDRAILS UP X2; BED DOWN. ER MD MADE AWARE OF PT STATUS.
--- NOTE | 2017-10-25 19:36 | NUR ---
Dr. Cheng evaluating patient at bedside.
[2017-10-25] MEDS ORDERED: KETOROLAC 30 MG/ML VIAL IM ONE (19:45)
--- NOTE | 2017-10-25 20:04 | NUR ---
16 INCH KNEE IMMOBOLIZER PLACED ON A PATIENTS RIGHT KNEE. PT PMSCs INTACT. ASKED IF IMMOBOLIZER TOO TIGHT TO WHICH THE PATIENT STATED, "IT IS FINE."
[2017-10-25 20:59] VITALS: BP 110/75
--- NOTE | 2017-10-25 20:59 | NUR ---
Patient discharged with v/s stable. Written and verbal after care instructions given and explained. Patient alert, oriented and verbalized understanding of instructions. Ambulatory with steady gait. All questions addressed prior to discharge. ID band removed. Patient advised to follow up with PMD. Rx of tylenol with codeine and naprosyn given. Patient educated on indication of medication including possible reaction and side effects. Opportunity to ask questions provided and answered.
== END 2017-10-25 20:59 | disposition home or self-care (01) ==
LOC: MED 18:48
DX: S83.91XA Sprain of unspecified site of right knee, initial encounter (principal); Z79.899 Other long term (current) drug therapy; X58.XXXA Exposure to other specified factors, initial encounter; Y93.89 Activity, other specified; Y92.89 Other specified places as the place of occurrence of the external cause; Y99.8 Other external cause status
CPT/HCPCS: 29505; 73562; 81025; 96372; 99284; J1885

== ENCOUNTER 2018-01-07 13:22 | Emergency (ER) | payer OTHER ==
[~2018-01-07] VITALS: Ht 162.6 cm; Wt 52.2 kg
[2018-01-07 13:35] VITALS: BP 111/81
--- NOTE | 2018-01-07 13:40 | NUR ---
PATIENT SHAKY AND DIZZY. BS 83 GIVEN ORANGE JUICE.ERMD AWARE
--- NOTE | 2018-01-07 13:57 | NUR ---
PATIENT C/O HER HEART IS RACING, TINGLING/NUMBNESS FINGERS, WEAKNESS. DENIES CHEST PAIN,DENIES SOB. PATIENT STATED SHE DONATED PLASMA YESTERDAY. HX: ANXIETY. DENIES MEDS. VSS; PATIENT POSITIONED FOR COMFORT; HOB ELEVATED; BEDRAILS UP X1; BED DOWN. ER MD MADE AWARE OF PT STATUS.
[2018-01-07 15:21] VITALS: BP 111/81
== END 2018-01-07 15:22 | disposition home or self-care (01) ==
LOC: MED 13:22
DX: F41.9 Anxiety disorder, unspecified (principal); F17.200 Nicotine dependence, unspecified, uncomplicated; Z79.1 Long term (current) use of non-steroidal anti-inflammatories (NSAID); Z79.899 Other long term (current) drug therapy
CPT/HCPCS: 81002; 81025; 82948; 93005; 99284

== ENCOUNTER 2018-03-11 08:10 | Emergency (ER) | payer OTHER ==
[~2018-03-11] VITALS: Ht 165.1 cm; Wt 52.2 kg
[~2018-03-11 08:10] MED LIST changes: -ACET-2869 PO; +HYDR-5122 PO
--- NOTE | 2018-03-11 08:13 | NUR ---
PT AMBULATED TO ER BED 05
[2018-03-11 08:14] VITALS: BP 124/86
--- NOTE | 2018-03-11 08:25 | NUR ---
BIB SELF. STATES SHE HAS A PAINFUL BUG BITE OR PIMPLE ON RIGHT CHEEK. UNKNOWN ORGIN, APPEARED YESTERDAY HAS GOTTEN BIGGER SINCE LAST NIGHT. RED RAISED 4MM ROUND BUMP UPON OBSERVATION. DENIES N/V/D; SKIN IS PINK/WARM/DRY; AAOX4 WITH EVEN AND STEADY GAIT; LUNGS CLEAR BL; HR EVEN AND REGULAR; PT DENIES ANY FEVER, CP, SOB, OR COUGH AT THIS TIME; PATIENT STATES PAIN OF 6/10 AT THIS TIME; VSS; PATIENT POSITIONED FOR COMFORT; HOB ELEVATED; BEDRAILS UP X2; BED DOWN. ER MD MADE AWARE OF PT STATUS.
[2018-03-11 09:29] VITALS: BP 124/86
--- NOTE | 2018-03-11 09:30 | NUR ---
Patient discharged with v/s stable. Written and verbal after care instructions given and explained. Patient alert, oriented and verbalized understanding of instructions. Ambulatory with steady gait. All questions addressed prior to discharge. ID band removed. Patient advised to follow up with PMD. Rx of MOTRIN, BACTRIM, KEFLEX given. Patient educated on indication of medication including possible reaction and side effects. Opportunity to ask questions provided and answered.
== END 2018-03-11 09:30 | disposition home or self-care (01) ==
LOC: MED 08:10
DX: L03.211 Cellulitis of face (principal); F17.200 Nicotine dependence, unspecified, uncomplicated; Z79.899 Other long term (current) drug therapy
CPT/HCPCS: 99283

== ENCOUNTER 2018-06-23 15:48 | Emergency (ER) | payer OTHER ==
[~2018-06-23] VITALS: Ht 154.9 cm; Wt 49.9 kg
[2018-06-23 15:51] VITALS: BP 126/84
--- NOTE | 2018-06-23 16:11 | NUR ---
PT TO ER BED 6
--- NOTE | 2018-06-23 16:20 | NUR ---
PT BIB SELF FOR EPIGASTRIC PAIN X 2 DAYS. PT REPORTS 10/10 CONSTANT SHARP PAIN IN EPIGASTRIC REGION THAT RADIATES UP THROAT/ESOPHAGUS. ABD IS SOFT, FLAT, TENDER TO TOUCH IN EPIGASTRIC REGION. PT REPORTS EATING DIET OF HIGH FAT AND FRIED FOOD. PT TOOK ALKISELZER WITH NO RELIEF. PT REPORTS N/V 2X IN PST 24 HOURS. PT DENIES FEVER. VSS. ER MD TO SEE PT.
[2018-06-23] MEDS ORDERED: ALUMINUM HYD/MAG/SIMETHICONE 30 ML UDC PO ONE (17:00)
[2018-06-23] MEDS ORDERED: LIDOCAINE VISCOUS 2% 20 ML UDC PO ONE (17:00)
[2018-06-23 17:35] LABS: BASOPHILS # (AUTO) 0.1 K/uL (0.00-0.22); BASOPHILS % (AUTO) 0.9 % (0.0-2.0); EOSINOPHILS # (AUTO) 0.1 K/uL (0-0.4); HEMATOCRIT 38.5 % (36-48); HEMOGLOBIN 12.7 g/dL (12.0-16.0); LYMPHOCYTES # (AUTO) 2.4 K/uL (2.5-16.5); LYMPHOCYTES % (AUTO) 24.7 % (20.5-51.1); MEAN CORPUSCULAR HEMOGLOBIN 30 pg (27-31); MEAN CORPUSCULAR HGB CONC 33 g/dL (33-37); MONOCYTES # (AUTO) 0.8 K/uL (0.8-1.0); MONOCYTES % (AUTO) 7.8 % (1.7-9.3); NEUTROPHILS # (AUTO) 6.3 K/uL (1.8-7.7); NEUTROPHILS % (AUTO) 65.6 % (42.2-75.2); PLATELET COUNT (AUTO) 269 K/uL (140-450); RED BLOOD CELL COUNT(AUTO) 4.23 MIL/uL (4.20-5.40); RED CELL DISTRIBUTION WIDTH 13.8 % (11.6-13.7); WHITE BLOOD COUNT (AUTO) 9.6 K/uL (4.8-10.8)
[2018-06-23 17:55] LABS: APPEARANCE,URINE SL CLOUDY (CLEAR); BILIRUBIN,URINE NEGATIVE (NEGATIVE); BLOOD, URINE 3+ (NEGATIVE); COLOR,URINE YELLOW (YELLOW); LEUKOCYTE ESTERASE ,URINE NEGATIVE (NEGATIVE); NITRITE, URINE NEGATIVE (NEGATIVE); UGLUCOSE NEGATIVE (NEGATIVE)
[2018-06-23 18:08] LABS: CREATININE 0.7 mg/dL (0.6-1.3)
[2018-06-23 18:16] LABS: ALBUMIN 3.8 g/dL (3.4-5.0); TOTAL BILIRUBIN 0.4 mg/dL (0.0-1.0)
--- NOTE | 2018-06-23 18:35 | NUR ---
PT AMB TO [facility] W/O ASST
[2018-06-23 18:37] VITALS: BP 125/85
[2018-06-23 19:22] LABS: WBC,URINE NONE SEEN /HPF (0-5)
== END 2018-06-23 18:39 | disposition home or self-care (01) ==
LOC: MED 15:48
DX: K29.70 Gastritis, unspecified, without bleeding (principal); F17.200 Nicotine dependence, unspecified, uncomplicated; Z87.42 Personal history of other diseases of the female genital tract; Z79.899 Other long term (current) drug therapy; Z79.891 Long term (current) use of opiate analgesic
CPT/HCPCS: 36415; 76705; 80053; 81001; 81025; 82150; 82948; 83690; 85025; 99284; Q0092

== ENCOUNTER 2018-11-15 04:40 | Emergency (ER) | payer OTHER ==
[~2018-11-15] VITALS: Ht 162.6 cm; Wt 52.6 kg
[2018-11-15 04:40] VITALS: BP 120/62
--- NOTE | 2018-11-15 04:40 | NUR ---
PT TAKEN TO BED 11
--- NOTE | 2018-11-15 04:40 | NUR ---
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 PT STATES SHE WOKE UP THIS MORNING WITH THE PAIN. BS ACTIVE ON ALL QUADRANTS. ABD SOFT, TENDER, PAIN ON LOWER ABD UPON PALPATION. LAST BM WAS YESTERDAY. DENIES ANY MEDICAL HX. PT VSS. ERMD AWARE. WILL CONTINUE TO MONITOR.
--- NOTE | 2018-11-15 05:03 | NUR ---
Dr. Gardner examining patient.
[2018-11-15] MEDS ORDERED: NACL 0.9% 1,000 ML IV ONE (05:10)
[2018-11-15] MEDS ORDERED: KETOROLAC 30 MG/ML VIAL IVP ONE (05:10)
[2018-11-15] MEDS ORDERED: MORPHINE SULFATE 2 MG/ML SYR IVP ONE (06:15)
--- NOTE | 2018-11-15 06:34 | NUR ---
Ultrasound at bedside.
--- NOTE | 2018-11-15 07:04 | NUR ---
RECEIVED REPORT FROM NITA SADLER FOR TRANSFER OF CARE. PT AAO X4, FULL CLEAR SPEECH. EVEN AND UNLABORED BREATHING.
[2018-11-15 07:13] VITALS: BP 118/62
--- NOTE | 2018-11-15 07:13 | NUR ---
Patient discharged with v/s stable. Written and verbal after care instructions given and explained. Patient alert, oriented and verbalized understanding of instructions. Ambulatory with steady gait. All questions addressed prior to discharge. ID band removed. Patient advised to follow up with PMD. Rx of ZOFRAN ODT, MOTRIN 800 MG, TRAMADOL HYDROCHLORIDE given. Patient educated on indication of medication including possible reaction and side effects. Opportunity to ask questions provided and answered.
== END 2018-11-15 07:13 | disposition home or self-care (01) ==
LOC: MED 04:40
DX: N83.201 Unspecified ovarian cyst, right side (principal); N83.202 Unspecified ovarian cyst, left side; F17.200 Nicotine dependence, unspecified, uncomplicated; Z98.890 Other specified postprocedural states; Z79.899 Other long term (current) drug therapy
CPT/HCPCS: 76856; 96374; 96375; 99284; J1885; J2270; J7030; Q0092

== ENCOUNTER 2019-01-17 08:52 | Emergency (ER) | payer OTHER ==
[~2019-01-17] VITALS: Ht 160 cm; Wt 50.8 kg
[2019-01-17 08:56] VITALS: BP 125/76
[2019-01-17 10:16] VITALS: BP 102/62
== END 2019-01-17 10:15 | disposition home or self-care (01) ==
LOC: MED 08:52
DX: N39.0 Urinary tract infection, site not specified (principal); Z79.899 Other long term (current) drug therapy
CPT/HCPCS: 81002; 81025; 99283

== ENCOUNTER 2019-01-24 07:40 | Emergency (ER) | payer OTHER ==
[~2019-01-24] VITALS: Ht 160 cm; Wt 51.7 kg
[2019-01-24 07:45] VITALS: BP 114/69
--- NOTE | 2019-01-24 07:46 | NUR ---
Patient ambulated to bed 11 with family. RN evaluating patient at bedside.
--- NOTE | 2019-01-24 07:54 | NUR ---
PATIENT PRESENTS TO ED WITH C/O LEFT FOOT PAIN AND SWELLING X 1 DAY. PT STATES THAT IT IS A POSSIBLE BUG BITE.PT STATES THAT PAIN IS 7/10 AND IS THROBBING. DENIES N/V/D; SKIN IS PINK/WARM/DRY; AAOX4 WITH EVEN AND STEADY GAIT; VSS; PATIENT POSITIONED FOR COMFORT, LEFT FOOT IS ELEVATED. BEDRAILS UP X1; BED DOWN. ER MD MADE AWARE OF PT STATUS. REY.
--- NOTE | 2019-01-24 07:57 | NUR ---
ED MD REA AT BEDSIDE
[2019-01-24 08:23] VITALS: BP 105/65
== END 2019-01-24 08:23 | disposition home or self-care (01) ==
LOC: MED 07:40
DX: L03.116 Cellulitis of left lower limb (principal); Z98.890 Other specified postprocedural states
CPT/HCPCS: 99283

== ENCOUNTER 2019-02-19 18:43 | Emergency (ER) | payer OTHER ==
[~2019-02-19] VITALS: Ht 160 cm; Wt 51.3 kg
[2019-02-19 19:05] VITALS: BP 99/69
[2019-02-19 20:06] LABS: BASOPHILS # (AUTO) 0.1 K/uL (0.00-0.22); BASOPHILS % (AUTO) 0.5 % (0.0-2.0); EOSINOPHILS # (AUTO) 0.1 K/uL (0-0.4); EOSINOPHILS % (AUTO) 0.7 % (0.0-4.0); HEMATOCRIT 39.6 % (36-48); HEMOGLOBIN 12.8 g/dL (12.0-16.0); LYMPHOCYTES # (AUTO) 2.9 K/uL (2.5-16.5); LYMPHOCYTES % (AUTO) 28.3 % (20.5-51.1); MEAN CORPUSCULAR HEMOGLOBIN 30 pg (27-31); MEAN CORPUSCULAR HGB CONC 32 g/dL (33-37); MEAN CORPUSCULAR VOLUME 91.6 fL (80-94); MONOCYTES # (AUTO) 0.9 K/uL (0.8-1.0); MONOCYTES % (AUTO) 9.3 % (1.7-9.3); NEUTROPHILS # (AUTO) 6.2 K/uL (1.8-7.7); NEUTROPHILS % (AUTO) 61.2 % (42.2-75.2); PLATELET COUNT (AUTO) 291 K/uL (140-450); RED BLOOD CELL COUNT(AUTO) 4.32 MIL/uL (4.20-5.40); RED CELL DISTRIBUTION WIDTH 13.7 % (11.6-13.7); WHITE BLOOD COUNT (AUTO) 10.1 K/uL (4.8-10.8)
[2019-02-19 20:22] LABS: ANION GAP 13.2 (8-16); CARBON DIOXIDE 27.7 mmol/L (21-32); CREATININE 0.7 mg/dL (0.6-1.3); POTASSIUM 3.9 mmol/L (3.5-5.1)
[2019-02-19 20:29] LABS: ALBUMIN 3.9 g/dL (3.4-5.0); TOTAL BILIRUBIN 0.3 mg/dL (0.0-1.0)
[2019-02-19] MEDS: LORazepam 1 MG TAB PO ONE (22:03)
[2019-02-19] MEDS: ONDANSETRON 4 MG ODT PO ONE (22:03)
[2019-02-19] MEDS: KETOROLAC 30 MG/ML VIAL IM ONE (22:03)
[2019-02-19 22:31] VITALS: BP 100/72
== END 2019-02-19 22:35 | disposition home or self-care (01) ==
LOC: MED 18:43
DX: R10.13 Epigastric pain (principal); F17.210 Nicotine dependence, cigarettes, uncomplicated; Z71.6 Tobacco abuse counseling; Z98.890 Other specified postprocedural states
CPT/HCPCS: 36415; 80053; 81002; 81025; 83690; 85025; 96372; 99283; J1885; Q0162

== ENCOUNTER 2019-03-22 11:13 | Emergency (ER) | payer OTHER ==
[~2019-03-22] VITALS: Ht 162.6 cm; Wt 54.9 kg
[2019-03-22 11:20] VITALS: BP 113/63
--- NOTE | 2019-03-22 11:20 | NUR ---
PT AMBULATED TO BED 12, FAMILY AT BEDSIDE
--- NOTE | 2019-03-22 11:26 | NUR ---
PATIENT PRESENTS TO ED WITH LEFT HIP AND PELVIC PAIN X 1 MONTH. STATES SHARP PAIN OF 8/10 WHICH RADIATES TO LEFT LEG, +NUMBNESS. PT DENIES ANY INJURY OR TRAUMA TO AREA. NO URINARY PROBLEMS. PT ABLE TO AMBULATE WITH PAIN. PULSES STRONG AND PALPABLE ON LOWER EXTREMITIES. VSS; PATIENT POSITIONED FOR COMFORT; HOB ELEVATED; BEDRAILS UP X2; BED DOWN. ER MD MADE AWARE OF PT STATUS. PMH: OVARIAN TORSION MEDS: NONE NKA
[2019-03-22] MEDS ORDERED: DEXAMETHASONE 10 MG/ML VIAL IM ONE (12:00)
[2019-03-22] MEDS ORDERED: MORPHINE SULFATE 4 MG/ML SYR IM ONE (12:00)
[2019-03-22] MEDS ORDERED: KETOROLAC 60 MG/2 ML VIAL IM ONE (12:00)
[2019-03-22 13:26] VITALS: BP 112/57
--- NOTE | 2019-03-22 13:26 | NUR ---
Patient discharged with v/s stable. Written and verbal after care instructions ABOUT HIP PAIN AND HIP BURSITIS given and explained. Patient alert, oriented and verbalized understanding of instructions. Ambulatory with steady gait. All questions addressed prior to discharge. ID band removed. Patient advised to follow up with PMD. Rx of VOLTAREN given. Patient educated on indication of medication including possible reaction and side effects. Opportunity to ask questions provided and answered. PATIENT INSTRUCTED TO HAVE MOTHER DRIVE AFTER MEDICATION.
== END 2019-03-22 13:26 | disposition home or self-care (01) ==
LOC: MED 11:13
DX: M25.552 Pain in left hip (principal)
CPT/HCPCS: 73502; 81025; 96372; 99283; J1100; J1885; J2270; Q0092

== ENCOUNTER 2019-07-07 20:11 | Emergency (ER) | payer OTHER ==
[~2019-07-07] VITALS: Ht 162.6 cm; Wt 61.2 kg
[2019-07-07 20:19] VITALS: BP 131/80
[2019-07-07] MEDS ORDERED: KETOROLAC 30 MG/ML VIAL IVP ONE (20:30)
[2019-07-07] MEDS ORDERED: ONDANSETRON 4 MG/2 ML VIAL IVP ONE (20:30)
[2019-07-07] MEDS ORDERED: NACL 0.9% 500 ML IV ONE (20:30)
[2019-07-07 20:47] LABS: BASOPHILS # (AUTO) 0.1 K/uL (0.00-0.22); BASOPHILS % (AUTO) 0.9 % (0.0-2.0); EOSINOPHILS % (AUTO) 0.5 % (0.0-4.0); HEMATOCRIT 36.6 % (36-48); HEMOGLOBIN 11.9 g/dL (12.0-16.0); LYMPHOCYTES # (AUTO) 2.2 K/uL (2.5-16.5); MEAN CORPUSCULAR HEMOGLOBIN 29 pg (27-31); MEAN CORPUSCULAR HGB CONC 32 g/dL (33-37); MEAN CORPUSCULAR VOLUME 89.5 fL (80-94); MONOCYTES # (AUTO) 0.8 K/uL (0.8-1.0); MONOCYTES % (AUTO) 8.1 % (1.7-9.3); NEUTROPHILS # (AUTO) 6.2 K/uL (1.8-7.7); NEUTROPHILS % (AUTO) 66.5 % (42.2-75.2); PLATELET COUNT (AUTO) 263 K/uL (140-450); RED BLOOD CELL COUNT(AUTO) 4.09 MIL/uL (4.20-5.40); RED CELL DISTRIBUTION WIDTH 14.6 % (11.6-13.7); WHITE BLOOD COUNT (AUTO) 9.4 K/uL (4.8-10.8)
[2019-07-07] MEDS ORDERED: PANTOPRAZOLE 40 MG INJ VIAL IVP ONE (20:50)
[2019-07-07 21:08] LABS: ALBUMIN 4.2 g/dL (3.4-5.0); ANION GAP 13.7 (8-16); CARBON DIOXIDE 27.1 mmol/L (21-32); CREATININE 0.8 mg/dL (0.6-1.3); POTASSIUM 3.8 mmol/L (3.5-5.1); TOTAL BILIRUBIN 0.4 mg/dL (0.0-1.0)
[2019-07-07] MEDS ORDERED: LIDOCAINE VISCOUS 2% 20 ML UDC PO ONE (21:35)
[2019-07-07] MEDS ORDERED: ALUMINUM HYD/MAG/SIMETHICONE 30 ML UDC PO ONE (21:35)
[2019-07-07] MEDS ORDERED: DICYCLOMINE HCL LIQUID 10 MG/5 ML UDC PO ONE (21:35)
[2019-07-07 22:24] VITALS: BP 131/80
== END 2019-07-07 22:24 | disposition home or self-care (01) ==
LOC: MED 20:11
DX: K29.70 Gastritis, unspecified, without bleeding (principal); R03.0 Elevated blood-pressure reading, without diagnosis of hypertension; F17.200 Nicotine dependence, unspecified, uncomplicated; R11.2 Nausea with vomiting, unspecified; Z98.890 Other specified postprocedural states
CPT/HCPCS: 36415; 76705; 80053; 81002; 81025; 83690; 85025; 96361; 96374; 96375; 99284; C9113; J1885; J2405; J7030; Q0092

== ENCOUNTER 2019-07-31 18:26 | Emergency (ER) | payer OTHER ==
[~2019-07-31] VITALS: Ht 165.1 cm; Wt 52.2 kg
[2019-07-31 18:35] VITALS: BP 126/86
--- NOTE | 2019-07-31 18:45 | NUR ---
Pt ambulated to bed, wearing mask.
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
[2019-07-31] MEDS ORDERED: KETOROLAC 30 MG/ML VIAL IM ONE (19:00)
--- NOTE | 2019-07-31 19:05 | NUR ---
REPORT GIVEN TO KATINA MOYA FOR CONTINUITY OF CARE
--- NOTE | 2019-07-31 19:21 | NUR ---
PT MEDICATED WITH TORADOL IM. TOLERATED WELL
--- NOTE | 2019-07-31 19:36 | NUR ---
PT AMBULATED FROM BED 11 TO [facility]
--- NOTE | 2019-07-31 19:45 | NUR ---
PT TAKEN TO XRAY
--- NOTE | 2019-07-31 20:18 | NUR ---
PA EVALUATING PATIENT.
[2019-07-31 20:27] VITALS: BP 126/86
--- NOTE | 2019-07-31 20:27 | NUR ---
Patient discharged with v/s stable. Written and verbal after care instructions given and explained. Patient alert, oriented and verbalized understanding of instructions. Ambulatory with steady gait. All questions addressed prior to discharge. ID band removed. Patient advised to follow up with PMD. Rx of IBUPROFEN, TYLENOL, FLEXERIL given. Patient educated on indication of medication including possible reaction and side effects. Opportunity to ask questions provided and answered.
== END 2019-07-31 20:28 | disposition home or self-care (01) ==
LOC: MED 18:26
DX: S92.012A Displaced fracture of body of left calcaneus, initial encounter for closed fracture (principal); J45.909 Unspecified asthma, uncomplicated; X58.XXXA Exposure to other specified factors, initial encounter; Y93.89 Activity, other specified; Y92.89 Other specified places as the place of occurrence of the external cause; Y99.8 Other external cause status
CPT/HCPCS: 72080; 81002; 81025; 96372; 99283; J1885

== ENCOUNTER 2019-11-29 11:35 | Emergency (ER) | payer OTHER ==
[~2019-11-29] VITALS: Ht 165.1 cm; Wt 50.8 kg
[2019-11-29 11:45] VITALS: BP 110/74
--- NOTE | 2019-11-29 11:52 | NUR ---
Pt ambulated to bed 3.
--- NOTE | 2019-11-29 11:55 | NUR ---
urine cup handed to pt for sample---
--- NOTE | 2019-11-29 11:59 | NUR ---
34 y/o female from home states she had increased BP while at work with sudden onset dizziness. Denies N/V/D. Denies episode of syncope. Pt states she woke up this morning nauseous but no nausea at this time. Denies drug use or caffeine intake. Per pt she gets tested for covid weekly, last neg test was sunday. Awake and alert. VSS medhx: denies
[2019-11-29] MEDS ORDERED: LORazepam 0.5 MG TAB PO ONE (12:20)
--- NOTE | 2019-11-29 12:27 | NUR ---
Lab at bedside
[2019-11-29 12:43] LABS: BASOPHILS % (AUTO) 0.5 % (0.0-2.0); EOSINOPHILS % (AUTO) 0.6 % (0.0-4.0); HEMATOCRIT 39.3 % (36-48); HEMOGLOBIN 13.1 g/dL (12.0-16.0); LYMPHOCYTES # (AUTO) 1.7 K/uL (2.5-16.5); MEAN CORPUSCULAR HEMOGLOBIN 31 pg (27-31); MEAN CORPUSCULAR HGB CONC 33 g/dL (33-37); MEAN CORPUSCULAR VOLUME 93.9 fL (80-94); MONOCYTES # (AUTO) 0.6 K/uL (0.8-1.0); MONOCYTES % (AUTO) 7.9 % (1.7-9.3); NEUTROPHILS # (AUTO) 5.3 K/uL (1.8-7.7); PLATELET COUNT (AUTO) 230 K/uL (140-450); RED BLOOD CELL COUNT(AUTO) 4.18 MIL/uL (4.20-5.40); RED CELL DISTRIBUTION WIDTH 13.5 % (11.6-13.7); WHITE BLOOD COUNT (AUTO) 7.7 K/uL (4.8-10.8)
[2019-11-29 12:49] LABS: ANION GAP 13.2 (8-16); CARBON DIOXIDE 25.4 mmol/L (21-32); CREATININE 0.7 mg/dL (0.6-1.3); POTASSIUM 4.6 mmol/L (3.5-5.1)
--- NOTE | 2019-11-29 13:03 | NUR ---
Pt states she is more relaxed, but still feels "shaky". Will continue to monitor
[2019-11-29 13:04] LABS: FREE T4 (FREE THYROXINE) 0.97 ng/dL (0.76-1.46); THYROID STIMULATING HORMONE 0.93 uIU/mL (0.34-3.74)
[2019-11-29 13:05] LABS: BARBITURATE, URINE NEGATIVE ng/ml (NEG <=200); BENZODIAZEPINE, URINE NEGATIVE ng/mL (NEG <=200); CANNABINOID, URINE NEGATIVE ng/mL (NEG <=50); COCAINE, URINE NEGATIVE ng/mL (NEG <=300); OPIATE, URINE NEGATIVE ng/mL (NEG <=2000); PHENCYCLIDINE SCREEN,URINE NEGATIVE ng/mL (NEG <=25)
[2019-11-29 14:08] VITALS: BP 110/74
--- NOTE | 2019-11-29 14:08 | NUR ---
Patient discharged with v/s stable. Written and verbal after care instructions given and explained. Patient alert, oriented and verbalized understanding of instructions. Ambulatory with steady gait. All questions addressed prior to discharge. ID band removed. Patient advised to follow up with PMD. Rx of ATIVAN 0.5MG given. Patient educated on indication of medication including possible reaction and side effects. Opportunity to ask questions provided and answered.
== END 2019-11-29 14:08 | disposition home or self-care (01) ==
LOC: MED 11:35
DX: R25.1 Tremor, unspecified (principal); R53.1 Weakness; K21.9 Gastro-esophageal reflux disease without esophagitis; F17.200 Nicotine dependence, unspecified, uncomplicated; Z98.890 Other specified postprocedural states
CPT/HCPCS: 36415; 80048; 80305; 81002; 81025; 84439; 84443; 85025; 93005; 99284

== ENCOUNTER 2021-01-12 11:20 | Emergency (ER) | payer OTHER ==
[~2021-01-12] VITALS: Ht 165.1 cm; Wt 50.3 kg
[2021-01-12 11:36] VITALS: BP 120/80
--- NOTE | 2021-01-12 11:39 | NUR ---
PT SENT TO LOBBY
[2021-01-12] MEDS ORDERED: CEPH-588 PO ×2 (12:26→16:01)
[2021-01-12] MEDS ORDERED: ACET-10509 PO ×2 (12:26→16:01)
[2021-01-12] MEDS ORDERED: PYR100 PO ×2 (12:26→16:01)
--- NOTE | 2021-01-12 12:32 | NUR ---
35/F C/O RIGHT SIDED LOWER BACK PAIN AND FOUL SMELLING URINE FOR TWO DAYS. DENIES INJURY OR TRAUMA, DENIES DYSURIA OR HEMATURIA, FEVER, CHILLS, CP. MEDHX: DENIES ALLERGIES: DENIES
[2021-01-12] MEDS: KETOROLAC 30 MG/ML VIAL IM ONE (12:37)
[2021-01-12 12:48] VITALS: BP 120/80
--- NOTE | 2021-01-12 12:48 | NUR ---
Patient discharged with v/s stable. Written and verbal after care instructions given and explained. Patient alert, oriented and verbalized understanding of instructions. Ambulatory with steady gait. All questions addressed prior to discharge. ID band removed. Patient advised to follow up with PMD. Rx of ACETAMINOPHEN, KEFLEX, AND PYRIDIUM given. Patient educated on indication of medication including possible reaction and side effects. Opportunity to ask questions provided and answered.
== END 2021-01-12 12:48 | disposition home or self-care (01) ==
LOC: MED 11:20
DX: N39.0 Urinary tract infection, site not specified (principal); K21.9 Gastro-esophageal reflux disease without esophagitis; Z79.899 Other long term (current) drug therapy; Z98.890 Other specified postprocedural states
CPT/HCPCS: 81002; 81025; 96372; 99283; J1885

== ENCOUNTER 2021-05-22 07:05 | Emergency (ER) | payer OTHER ==
[~2021-05-22] VITALS: Ht 162.6 cm; Wt 48.6 kg
[~2021-05-22 07:05] MED LIST changes: +ACET-10509 PO; +CEPH-588 PO; -DOCU-299 PO; -HYDR-5122 PO; -ONDA4TAB PO; +PYR100 PO
[2021-05-22 07:10] VITALS: BP 118/84
--- NOTE | 2021-05-22 07:10 | NUR ---
to bed ambulatory
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
--- NOTE | 2021-05-22 08:08 | NUR ---
35/F BIB SELF C/O THROAT PAIN 10/10 FOR THE PAST 2 DAYS. PATIENT STATES SHE IS UNABLE TO DRINK OR EAT BECAUSE OF THE PAIN. DENIES N/V/D/C AT THIS TIME. DENIES SOB OR DISTRESS AT THIS TIME. REY
[2021-05-22] MEDS ORDERED: PENI500T20 PO (10:41)
--- NOTE | 2021-05-22 10:47 | NUR ---
Pt refused to take decadron. Pt states " I feel better and don't need anything else, I have to go to work already." Educated pt on risks and benefits of refusing x3, pt states she understands and will assume risks at this time. DARLEEN Carcamo made aware, proceed with d/c.
[2021-05-22 10:49] VITALS: BP 115/82
--- NOTE | 2021-05-22 10:49 | NUR ---
Patient discharged with v/s stable. Written and verbal after care instructions given and explained with teach back. Patient alert, oriented and verbalized understanding of instructions. Ambulatory with steady gait. All questions addressed prior to discharge. ID band removed. Patient advised to follow up with PMD. Rx of penicillin v potassium given. Patient educated on indication of medication including possible reaction and side effects. Opportunity to ask questions provided and answered.
== END 2021-05-22 10:49 | disposition home or self-care (01) ==
LOC: MED 07:05
DX: J02.9 Acute pharyngitis, unspecified (principal)
CPT/HCPCS: 70360; 99283